=== PATIENT | female | born 1990 | race Caucasian/White ===

== ENCOUNTER 2023-07-17 11:42 | Emergency (ER) | payer BC, SELFPAY ==
[2023-07-17 11:57] VITALS: BP 109/84
[2023-07-17 12:02] VITALS: BMI 23.1
[2023-07-17 12:22] LABS: % Basophils 0.7 % (0-2); % Eosinophils 1.5 % (0-6); % Immature Granulocytes 0.2 % (0-0.5); % Lymphocytes 29.9 % (20.5-51.1); % Neutrophils 59.7 % (42.2-75.2); Absolute Eosinophils 0.1 10^3/uL (0-0.7); Absolute Lymphocytes 1.2 10^3/uL (1.2-3.4); Absolute Monocytes 0.3 10^3/uL (0.1-0.6); Absolute Neutrophils 2.4 10^3/uL (1.4-6.5); Hematocrit 35.4 % (37.0-47.0); Hemoglobin 12.4 g/dL (12.0-16.0); Mean Corpuscular Hgb 32.7 pg (27.0-31.0); Mean Corpuscular Volume 93.4 fL (81.0-99.0); Mean Platelet Volume 9.6 fL (7.4-10.4); Nucleated Red Blood Cells % 0 %; Platelet Count 269 10^3/uL (130-400); Red Blood Cell Count 3.79 10^6/uL (4.20-5.40); Red Cell Dist. Width 11.9 % (11.5-14.5)
[2023-07-17 12:48] LABS: ALT (SGPT) 17 U/L (0-35); AST (SGOT) 30 U/L (14-36); Albumin 4.8 g/dl (3.5-5.0); Alkaline Phosphatase 59 U/L (38-126); Blood Urea Nitrogen 9 mg/dl (7-17); Calcium 9.5 mg/dl (8.4-10.2); Carbon Dioxide 24 mmol/L (22-30); Chloride 101 mmol/L (98-107); Estimated Creatinine Clearance 114 ml/min; Glucose 87 mg/dl (70-99); Sodium 135 mmol/L (135-145); Total Bilirubin 0.3 mg/dl (0.2-1.3); Total Protein 7.5 g/dl (6.3-8.2); eGFR > 60.00
--- NOTE | 2023-07-17 12:48 | ED.GENMED ---
History of Present Illness
<Mackenzie Yang, CARD MAKER - Last Filed: 07/18/23 08:45>
General
Chief Complaint: Dizziness
Source: patient
Exam Limitations: none
Time Seen by Provider: 07/17/23 12:23
Nursing documentation reviewed up to this point in time: agreed with
Travel History
Have you had any contact with someone who has COVID-19?: No
Do you have any symptoms of coronavirus? Fever > 100 degrees, chills, cough, shortness of breath, sore throat, loss of taste or smell, muscle aches, or headache?: No
History of Present Illness
History of Present Illness:
32-year-old female with history of HLD, panic disorder states over the past 4 days she has had episodes where she feels faint, her hearing decreases she starts to see white and then almost passes out. She denies chest pain or trouble breathing.
Denies abdominal pain. Denies N/V/D/C. She does feel dehydrated.
She states she was prescribed CBD Gummies 2 days ago for her anxiety and to help her sleep, she started off taking only a half of one and started the day her symptoms started.
Past History
<Mackenzie Yang CARD MAKER - Last Filed: 07/18/23 08:45>
Past History
ED Past Medical History: Hypercholesterolemia and Psychiatric (Panic disorder)
ED Past Surgical History: None
Social History
Tobacco: Non-smoker
Alcohol: None
Drug: Other (CBD Gummies prescribed just started using them 4 days ago)
Personal: Single
Living: with family
Employment: Employed
Review of Systems
<Mackenzie Yang, CARD MAKER - Last Filed: 07/18/23 08:45>
Review of Systems
Allergies reviewed?: Yes
All Other Systems: ROS reviewed and negative except as documented in HPI and ROS
Constitutional: Denies fever or chills
EENT: Denies sore throat
Respiratory: Denies trouble breathing
Cardiac: Denies chest pain, diaphoresis, palpitations or syncope (Near syncope spells)
ABD/GI: Denies abdominal pain, nausea, vomiting or diarrhea
: Denies dysuria, frequency or difficulty voiding
Musculoskeletal: Reports no symptoms
Skin: Reports no symptoms
Neurological: Reports no symptoms
Phy Exam
<Mackenzie Yang, CARD MAKER - Last Filed: 07/18/23 08:45>
Physical Exam
Physical Exam:
GENERAL: No acute distress. A&Ox3.
CONSTITUTIONAL: Afebrile.
EYES: PERRL, conjunctivae normal
Neck: Supple
ENMT: moist mucus membranes, Pharynx nl
RESPIRATORY: Regular respirations, nonlabored, lungs clear.
CARDIOVASCULAR: Regular rate and rhythm, no murmurs, no rubs.
GI: Soft, nontender, normal BS
MUSCULOSKELETAL: Moves with ease. Well perfused.
SKIN: Warm, dry, pink
PSYCH: Normal mood and affect. Well kept, interactive and appropriate
NEUROLOGIC: Awake, alert and oriented.. CN II through XII intact. [id number] intact. Ambulates well with steady gait. No focal neurological deficits
Course
<Mackenzie Yang, CARD MAKER - Last Filed: 07/18/23 08:45>
Orders/Labs/Results
Orders:
Orders
07/17/23 11:47
EKG [Electrocardiogram (*1)] Urgent
Reason for Study: Vertigo / Dizzy
07/17/23 11:48
EKG- Treatment ONCE
07/17/23 12:16
Complete Blood Count/With Diff Urgent
Comprehensive Metabolic Panel Urgent
HCG, Serum Qualitative Screen Urgent
Comment: ADD ON
07/17/23 12:23
Orthostatic VS- Treatment ONCE
07/17/23 12:24
0.9% Sodium Chloride 1000 ml [Nss] 1,000 ml IV BOLUS
07/17/23 12:25
Add On- LAB Urgent
Tests Added?: Beta HCG serum qualitative
Abnormal Lab Results
07/17/23
12:16
WBC 4.0 L 10^3/uL
(4.8-10.8)
RBC 3.79 L 10^6/uL
(4.20-5.40)
Hct 35.4 L %
(37.0-47.0)
MCH 32.7 H pg
(27.0-31.0)
Creatinine 0.5 L mg/dL
(0.6-1.0)
07/17/23 12:16
07/17/23 12:16
Vital Signs
Initial and Last Documented VS:
Initial Vital Signs
Pulse Resp BP Pulse Ox
88 16 109/84 99
07/17/23 11:57 07/17/23 11:57 07/17/23 11:57 07/17/23 11:57
Last Documented Vital Signs
Pulse Resp BP Pulse Ox
88 16 109/84 99
07/17/23 11:57 07/17/23 11:57 07/17/23 11:57 07/17/23 11:57
Heat Treat Technician consulted with Physician
Heat Treat Technician consulted with physician?: Yes
Name of Physician Consulted: Kerri
<Graciela Manning MD - Last Filed: 07/17/23 14:13>
Orders/Labs/Results
Orders:
Orders
07/17/23 11:47
EKG [Electrocardiogram (*1)] Urgent
Reason for Study: Vertigo / Dizzy
07/17/23 11:48
EKG- Treatment ONCE
07/17/23 12:16
Complete Blood Count/With Diff Urgent
Comprehensive Metabolic Panel Urgent
HCG, Serum Qualitative Screen Urgent
Comment: ADD ON
07/17/23 12:23
Orthostatic VS- Treatment ONCE
07/17/23 12:24
0.9% Sodium Chloride 1000 ml [Nss] 1,000 ml IV BOLUS
07/17/23 12:25
Add On- LAB Urgent
Tests Added?: Beta HCG serum qualitative
Abnormal Lab Results
07/17/23
12:16
WBC 4.0 L 10^3/uL
(4.8-10.8)
RBC 3.79 L 10^6/uL
(4.20-5.40)
Hct 35.4 L %
(37.0-47.0)
MCH 32.7 H pg
(27.0-31.0)
Creatinine 0.5 L mg/dL
(0.6-1.0)
07/17/23 12:16
07/17/23 12:16
Vital Signs
Initial and Last Documented VS:
Initial Vital Signs
Pulse Resp BP Pulse Ox
88 16 109/84 99
07/17/23 11:57 07/17/23 11:57 07/17/23 11:57 07/17/23 11:57
Last Documented Vital Signs
Pulse Resp BP Pulse Ox
88 16 109/84 99
07/17/23 11:57 07/17/23 11:57 07/17/23 11:57 07/17/23 11:57
<Mackenzie Yang, CARD MAKER - Last Filed: 07/18/23 08:45>
MDM/Problems Addressed
Differential Diagnosis Includes:
Side effect from new medication: CBD Gummies, dehydration
MDM/Problems Addressed:
32-year-old female with history of HLD, panic disorder states over the past 4 days she has had episodes where she feels faint, her hearing decreases she starts to see white and then almost passes out. She denies chest pain or trouble breathing.
Denies abdominal pain. Denies N/V/D/C. She does feel dehydrated.
She states she was prescribed CBD Gummies 2 days ago for her anxiety and to help her sleep, she started off taking only a half of one and started the day her symptoms started.
EKG sinus tachycardia with a rate of 101.
2:00 PM
CBC normal
CMP normal
hCG negative
Bedside monitor showing heart rate in the 70s to 80s.
Dr. Manning in to evaluate and agrees patient is stable for discharge.
<Mackenzie Yang CARD MAKER - Last Filed: 07/18/23 08:45>
*Critical Care Note
Total Time (30-74mins, 75-104mins- exclusive of procedures): Not Applicable
ED Attending Note
<Mackenzie Yang CARD MAKER - Last Filed: 07/18/23 08:45>
-
Portions of this chart may have been created with voice recognition software.� Occasional wrong word or��sound alike� substitutions may have occurred due to the inherent limitations of voice recognition software.
<Graciela Manning MD - Last Filed: 07/17/23 14:13>
ED Attending Note
Patient seen and examined by attending physician: Yes
ED Attending Note:
32-year-old female with episodes of dizziness described as lightheadedness associated with feeling like she might pass out, nausea. Generally very positional. No actual syncope. No associated chest pain, palpitations, severe headache, neck pain,
abdominal pain. Patient has been having intermittent headaches, not worse in morning, not worse with laying forward, not associated with phonophobia, photophobia. Patient denies persistent numbness or tingling, focal weakness, change in vision,
sense of vertigo, or other complaints. On exam, neurologically intact, normal gait, [id number] normal, motor 5 out of 5, sensory intact, cranial nerves II through XII intact. Strongly suspect vasovagal component perhaps with element of
dehydration/medication reaction. Doubt central CIVIL PREPAREDNESS OFFICER process. ECG does not suggest underlying rhythm disorder.
Discharge Plan
Departure
Patient Disposition: Home (Routine Discharge)
Date of Disposition: 07/17/23
Time of Disposition: 14:30
Patient with high blood pressure during this ER visit?: No
Condition: Good
Discharge Problem:
Near syncope, Medication side effect
Instructions: Near Fainting (DC)
Referrals:
Diego Ackerman PA-C [Family Provider] - As needed
Activity Restrictions/Additional Instructions:
As we discussed, your near fainting episode are most likely result of the side effect of the Gummies. Stop them completely for at least a week to see if your symptoms resolve. Drink plenty of fluids to stay hydrated
Interventions
Interventions:
*Risk Screen - Suicide Last Done: 07/17/23 14:49
*General Assessment Last Done: 07/17/23 14:49
*Neglect/Abuse Screening Last Done: 07/17/23 14:50
ED- Fall Risk Assessment Last Done: 07/17/23 14:49
*ED COVID-19 Vaccine History Last Done: 07/17/23 14:49
*Nursing Disposition Last Done: 07/17/23 14:49
ED- Neurological Assessment Last Done: 07/17/23 12:26
ED- Cardiac Assessment Last Done: 07/17/23 12:26
ED Swallowing Screen Last Done: 07/17/23 12:26
Discharge Date and Time
Discharge Date/Time: 07/17/23 14:50
Print Language: THAI
[2023-07-17] MEDS: NSS 1000 IV (12:59)
[2023-07-17 13:00] VITALS: BP 105/79; BP 108/96; BP 116/77; PULSE 104; PULSE 107; PULSE 112
[2023-07-17 13:19] LABS: HCG, Serum Qualitative Screen Negative
== END 2023-07-17 14:50 | disposition home or self-care (01) ==
LOC: EMR 11:42
PROVIDERS: Student in an Organized Health Care Education/Training Program; EMERGENCY PHYSICIAN Emergency Medicine; FAMILY PHYSICIAN Physician Assistant
DX: R55 Syncope and collapse (principal); T50.995A Adverse effect of other drugs, medicaments and biological substances, initial encounter; Y92.9 Unspecified place or not applicable; E78.00 Pure hypercholesterolemia, unspecified; F41.0 Panic disorder [episodic paroxysmal anxiety]
CPT/HCPCS: 99283; 80053; 84703; 85025; 93005

== ENCOUNTER → 2023-11-13 12:00 | Outpatient (REF) | payer BC, SELFPAY | LOC: DHSLP 12:00 | PROVIDERS: ATTENDING PHYSICIAN Internal Medicine; FAMILY PHYSICIAN Physician Assistant | DX: G47.19 Other hypersomnia (principal); R06.83 Snoring | CPT/HCPCS: 95800 ==

== ENCOUNTER → 2023-12-12 10:56 | Outpatient (REF) | payer BC, SELFPAY | LOC: DHSLP 10:56 | PROVIDERS: ATTENDING PHYSICIAN Internal Medicine; FAMILY PHYSICIAN Physician Assistant | DX: G47.19 Other hypersomnia (principal); R06.83 Snoring | CPT/HCPCS: 95800 ==

== ENCOUNTER → 2024-06-24 16:09 | Outpatient (REF) | payer BC, SELFPAY | LOC: MRI 3T 16:09 | PROVIDERS: ATTENDING PHYSICIAN Family Medicine | DX: I72.0 Aneurysm of carotid artery (principal) | CPT/HCPCS: 70549; A9585 ==

== ENCOUNTER → 2024-08-06 09:41 | Outpatient (REF) | payer BC, SELFPAY | LOC: HWRAD 09:41 | PROVIDERS: ATTENDING PHYSICIAN Physician Assistant Medical | DX: R10.9 Unspecified abdominal pain (principal) | CPT/HCPCS: 74018; 76700 ==

== ENCOUNTER → 2024-08-08 11:24 | Outpatient (REF) | payer BC, SELFPAY | LOC: RAD 11:24 | PROVIDERS: ATTENDING PHYSICIAN Physician Assistant Medical | DX: R10.9 Unspecified abdominal pain (principal) | CPT/HCPCS: 74178; Q9967 ==

== ENCOUNTER 2024-10-07 07:06 | Emergency (ER) | payer BC, SELFPAY ==
[2024-10-07 07:12] VITALS: BP 121/85
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
== END 2024-10-07 08:30 | disposition home or self-care (01) ==
LOC: EMR 07:06
PROVIDERS: EMERGENCY PHYSICIAN Emergency Medicine; FAMILY PHYSICIAN Family Medicine
DX: S83.91XA Sprain of unspecified site of right knee, initial encounter (principal); W19.XXXA Unspecified fall, initial encounter; Y92.814 Boat as the place of occurrence of the external cause; E78.00 Pure hypercholesterolemia, unspecified
CPT/HCPCS: 29505; 99283; 73564

== ENCOUNTER → 2024-11-10 12:46 | Outpatient (REF) | payer BC, SELFPAY | LOC: PAVMRI 12:46 | PROVIDERS: ATTENDING PHYSICIAN Family Medicine | DX: M23.91 Unspecified internal derangement of right knee (principal) | CPT/HCPCS: 73721 ==